=== PATIENT | male | born 1955 | race Caucasian/White ===

== ENCOUNTER 2020-06-13 04:02 | Observation (INO) ==
--- NOTE | 2020-06-13 04:44 | ERNOTE ---
Dyspnea - General Presenting Symptoms: shortness of breath Time Seen by Provider: 06/13/20 04:26 Source: patient Exam Limitations: no limitations - Immun/Allergies/Home Medications Immunizations: IMMUNIZATION HX Immunizations Up to Date Yes History of Influenza Vaccine Yes Allergies/Adverse Reactions: Allergies Penicillins Adverse Reaction (Verified 06/13/20 04:26) RASH/HIVES/DIARRHEA/DIZZINESS Home Medications: HOME MEDICATIONS atorvastatin 80 mg tablet 80 mg PO HS 05/10/19 [Last Taken Unknown] buspirone 10 mg tablet 10 mg PO DAILY 05/10/19 [Last Taken Unknown] lisinopril 20 mg tablet 20 mg PO DAILY 05/10/19 [Last Taken Unknown] zolpidem 10 mg tablet 10 mg PO HS PRN 05/10/19 [Last Taken Unknown] sertraline 100 mg tablet 50 mg PO DAILY tab 05/11/19 [Last Taken Unknown] - History of Present Illness Narrative: Patient has been sick with cough diarrhea and lack of appetite for about a week. He tested positive for Covid 2 days ago. He worsened overnight and states he was stumbling, very weak and short of breath this morning. Severity: moderate Treatment EQUITY HOLDER: none Modifying Factors - (Improves): Reports: oxygen Modifying Factors (Worsens): Reports: activity Associated Symptoms-Dyspnea: Reports: cough, weakness Review of Systems - Review of Systems Constitutional: Present: recent illness, fatigue, malaise ENT: Absent: nose congestion, nasal drainage Respiratory: Present: See HPI, shortness of breath, cough Cardiology: Absent: chest pain Gastrointestinal/Abdominal: Present: nausea, vomiting, diarrhea, abdominal pain Genitourinary: Absent: frequency, dysuria Musculoskeletal: Absent: back pain, muscle pain Skin: Absent: rash Neurological: Absent: headache Endocrine: Absent: excessive sweating Medical History (Last Reviewed 06/13/20 @ 04:42 by Kenji Thomas DO) Anxiety Onset Date: Unknown Hyperplasia of prostate Onset Date: Unknown Hypertension Onset Date: Unknown Insomnia Onset Date: Unknown Obesity Onset Date: Unknown Osteoarthritis Onset Date: Unknown Arthritis Onset Date: Unknown Depression Onset Date: Unknown Hyperlipidemia Onset Date: Unknown Surgical History: Surgical History (Last Reviewed 06/13/20 @ 04:42 by Kenji Thomas DO) History of Achilles tendon repair Onset Date: ~1976 right History of cataract surgery Onset Date: Unknown right, History of colonoscopy Onset Date: 06/07/19 06/07/19 [place]-severe sigmoid diverticulosis. Recheck 10yrs. History of detached retina repair Onset Date: 07/21/18 right History of foot surgery Onset Date: ~2013 left flat foot reconstruction History of hernia repair Onset Date: ~1999 umbilical History of nasal septoplasty Onset Date: Unknown History of tonsillectomy and adenoidectomy Onset Date: ~12/2010 Family History: Family History (Last Reviewed 06/13/20 @ 04:42 by Kenji Thomas DO) Father , age 77-lung ca Cancer lung ca-dx age 75 Mother , age 77-lung ca Cancer colon ca-dx age 70. Lung ca-dx age 72 Sister Alive and well Brother Alive and well Grandmother Cancer paternal-uterine ca Social History: (Last Reviewed 06/13/20 @ 04:42 by Kenji Thomas DO) Social History: Marital status: household members: spouse number of children: 5 current occupational status: retired Service: No Tobacco: Smoking Status: Former smoker tobacco type: smokeless tobacco Smokeless tobacco user: chewing tobacco Alcohol: alcohol intake: current alcohol intake frequency: a few times a month Substance Use: substance use type: does not use Dietary Habits: caffeine: Yes Personal Safety: victim of physical abuse: No victim of emotional abuse: No Physical Exam - Physical Exam General Appearance: Present: wd/wn, alert, no apparent distress Head Exam: Present: normal inspection, no evidence of injury Neck: Present: normal inspection, nontender, supple Respiratory: Present: no respiratory distress, no accessory muscle use, crackles - Right midlung Cardiovascular/Chest: Present: no murmur, tachycardia Gastrointestinal/Abdominal: Present: normal bowel sounds, nontender, nondistended, soft Back Exam: Present: normal inspection Extremity Exam: Present: normal inspection, no edema Neurological Exam: Present: alert, oriented, normal mood/affect Skin Exam: Present: normal color, warm/dry Lymphatic Exam: Present: no adenopathy Progress - Results and Orders Patient's Lab Results:: I have reviewed the patient's lab results. Results and Orders: Laboratory Tests 06/13/20 06/13/20 06/13/20 04:15 04:15 04:15 WBC 10.8 H Hgb 16.4 Hct 48.2 Plt Count 232 Neutrophils % (Manual) 76 H D-Dimer 1.09 H Sodium 130 L Potassium 2.8 L Chloride 95 L Anion Gap 15.8 H BUN 8 Creatinine 0.99 Random Glucose 133 H Lactic Acid, Venous Calcium 9.4 Total Bilirubin 0.9 AST 48 ALT 66 Alkaline Phosphatase 90 Troponin I Less than 0.017 B-Natriuretic Peptide 28 06/13/20 04:15 WBC Hgb Hct Plt Count Neutrophils % (Manual) D-Dimer Sodium Potassium Chloride Anion Gap BUN Creatinine Random Glucose Lactic Acid, Venous 1.5 Calcium Total Bilirubin AST ALT Alkaline Phosphatase Troponin I B-Natriuretic Peptide - Vital Signs Patient's Vital Signs:: I have reviewed the patient's vital signs. Vital Signs: Vital Signs 06/13/20 04:19 Temperature 36.5 C Pulse Rate 107 H Respiratory Rate 20 Blood Pressure 128/80 O2 Sat by Pulse Oximetry 91 L - EKG EKG #1 EKG: supraventricular tachycardia - 110, nonspecific ST T wave changes EKG read: Interp. by me - X-Ray X-Ray #1 X-Ray: chest Interpretation: Interp. by me X-ray Comments: Patchy peripheral infiltrates right lung greater than left - Progress/Reassessment Chief Complaint: Dyspnea Progress Note-Subjective: 06/13/20 05:[address] Philip, she agrees with admission, anticoagulation and oxygen supplementation Departure Clinical Impression: Pneumonia due to COVID-19 virus - Departure Disposition: Still a patient Condition: Good Referrals: Alice Lorenzana, [Primary Care Provider] -
[2020-06-13 04:47] LABS: Hematocrit 48.2 % (42.0-52.0); Hemoglobin 16.4 gm/dL (13.5-18.0); Mean Cell Volume 85.8 fl (78-100); Mean Corpuscular Hemoglobin 29.2 pg (27-31); Mean Platelet Volume 10.5 fl (8-11.3); Platelet Count 232 K/mm3 (150-450); Red Blood Count 5.62 M/mm3 (4.7-6.0); Red Cell Distribution Width 13.9 % (11.5-14.0); White Blood Count 10.8 K/mm3 (4.0-10.5)
[2020-06-13 04:49] LABS: Total Cells Counted 100
[2020-06-13 04:52] LABS: Atypical (Reactive) Lymph 4 % (0-2); Lymphocyte 12 % (20-51); Monocyte 8 % (0-9); Neutrophil 76 % (42-75); Neutrophil # 8.2 K/mm3 (1.3-6.0); Platelet Estimate Normal (NORMAL); RBC Morphology Normal (NORMAL)
[2020-06-13 04:59] LABS: ALT 66 U/L (19-67); AST 48 U/L (0-48); Albumin * 3.7 gm/dl (3.4-5.0); Alkaline Phosphatase * 90 U/L (50-170); Anion Gap 15.8 mmol/L (6.8-13.8); BNP * 28 pg/mL (5-350); BUN/Creatinine Ratio 8.1 (9.0-21.6); Bilirubin, Total 0.9 mg/dL (0.0-1.1); Blood Urea Nitrogen 8 mg/dL (6-23); Ca. Corrected For Albumin 9.3 mg/dL (8.4-10.2); Calcium * 9.4 mg/dL (7.9-10.9); Chloride 95 mmol/L (97-106); Glucose * 133 mg/dL (70-110); Potassium 2.8 mmol/L (3.4-4.6); Sodium 130 mmol/L (132-142); Troponin I Less than 0.017 ng/mL (0.00-0.10)
[2020-06-13] MEDS ORDERED: ENOXAPARIN SODIUM 100 MG/ML SYRG SC SCH (06:00)
[2020-06-13] MEDS ORDERED: ENOXAPARIN SODIUM 60 MG/0.6 ML SYRG SC SCH (08:15)
[2020-06-13] MEDS ORDERED: ZOLPIDEM TARTRATE 10 MG TABLET PO PRN (09:45)
[2020-06-13] MEDS ORDERED: ENOXAPARIN SODIUM 40 MG/0.4 ML SYRG SC SCH (09:45)
[2020-06-13] MEDS ORDERED: POTASSIUM BICARBONATE/CIT AC 25 MEQ TABLET.EFF PO ONE (09:45)
[2020-06-13] MEDS ORDERED: LISINOPRIL 20 MG TABLET PO SCH (10:00)
--- NOTE | 2020-06-13 12:26 | HPDIS ---
Chief Complaint - Chief Complaint Date of Service: 06/13/20 Time of Service: 10:38 Chief Complaint: Weakness, poor appetite, shortness of breath History of Present Illness: 65-year-old male with a past medical history of hypertension, hyperlipidemia, anxiety, depression, osteoarthritis, obesity presents from home with complaints of shortness of breath. He was diagnosed with COVID-19 two days prior to presentation. For the past 1 week he has been ill with cough, poor appetite, weakness and diarrhea. In the emergency department he was found to have hypoxia with oxygen saturation in the low 90s to high 80s that responded to oxygen via Nasal cannula. Chest x-ray showed patchy peripheral right pneumonia cannot exclude COVID-19, labs showed a mild leukocytosis at 10.8, hypokalemia 2.8 and hyponatremia at 130. He was admitted for further evaluation. Medical History (Last Reviewed 06/13/20 @ 06:46 by Isreal Boone RN) Anxiety Onset Date: Unknown Hyperplasia of prostate Onset Date: Unknown Hypertension Onset Date: Unknown Insomnia Onset Date: Unknown Obesity Onset Date: Unknown Osteoarthritis Onset Date: Unknown Arthritis Onset Date: Unknown Depression Onset Date: Unknown Hyperlipidemia Onset Date: Unknown Surgical History: Surgical History (Last Reviewed 06/13/20 @ 06:46 by Isreal Boone RN) History of Achilles tendon repair Onset Date: ~1976 right History of cataract surgery Onset Date: Unknown right, History of colonoscopy Onset Date: 06/07/19 06/07/19 [place]-severe sigmoid diverticulosis. Recheck 10yrs. History of detached retina repair Onset Date: 07/21/18 right History of foot surgery Onset Date: ~2013 left flat foot reconstruction History of hernia repair Onset Date: ~1999 umbilical History of nasal septoplasty Onset Date: Unknown History of tonsillectomy and adenoidectomy Onset Date: ~12/2010 Family History: Family History (Last Reviewed 06/13/20 @ 06:46 by Isreal Boone RN) Father , age 77-lung ca Cancer lung ca-dx age 75 Mother , age 77-lung ca Cancer colon ca-dx age 70. Lung ca-dx age 72 Sister Alive and well Brother Alive and well Grandmother Cancer paternal-uterine ca Social History: (Last Reviewed 06/13/20 @ 06:46 by Isreal Boone RN) Social History: Marital status: household members: spouse number of children: 5 current occupational status: retired Service: No Tobacco: Smoking Status: Former smoker tobacco type: smokeless tobacco Smokeless tobacco user: chewing tobacco Alcohol: alcohol intake: current alcohol intake frequency: a few times a month Substance Use: substance use type: does not use Dietary Habits: caffeine: Yes Personal Safety: victim of physical abuse: No victim of emotional abuse: No Review Of Systems (GEN) - Review of Systems Generalized/Overall Review: Absent: Fever Respiratory: Absent: Shortness of Breath Cardiac: Absent: Chest Pain Abdominal: Absent: Abdominal Pain Misc: All systems neg except as marked Immunizations: IMMUNIZATION HX Immunizations Up to Date Yes History of Influenza Vaccine Yes Allergies/Adverse Reactions: Allergies Allergy/AdvReac Type Severity Reaction Status Date / Time Penicillins AdvReac RASH/HIVES/ Verified 06/13/20 06:46 DIARRHEA/DI ZZINESS Home Medications: HOME MEDICATIONS atorvastatin 80 mg tablet 80 mg PO HS 05/10/19 [Last Taken Unknown] buspirone 10 mg tablet 10 mg PO TID 05/10/19 [Last Taken Unknown] lisinopril 20 mg tablet 20 mg PO DAILY 05/10/19 [Last Taken Unknown] zolpidem 10 mg tablet 10 mg PO HS PRN 05/10/19 [Last Taken Unknown] sertraline 100 mg tablet 100 mg PO DAILY tab 05/11/19 [Last Taken Unknown] Exam - Exam Vital Signs: Vital Signs - Last Taken Temp 36.3 C 06/13/20 06:48 Pulse 100 06/13/20 11:38 Resp 21 H 06/13/20 09:59 BP 125/71 06/13/20 11:38 Pulse Ox 96 06/13/20 09:59 Constitutional: Present: Alert, Cooperative, Well developed, Well nourished, No distress, Elderly ENT Exam: Present: hearing grossly normal, moist mucous membranes Eye Exam: bilateral eye: EOMI Neck: Present: non-tender, supple. Absent: lymphadenopathy (R), lymphadenopathy (L) Back Exam: Present: normal inspection, no CVA tenderness Respiratory: Present: lungs clear, no respiratory distress, no accessory muscle use, No wheezing. Absent: crackles, rhonchi Cardiovascular/Chest: Present: normal peripheral pulses, regular rate, rhythm, no murmur Peripheral Pulses: dorsalis-pedis (R): 1+, dorsalis-pedis (L): 1+ Abdomen: Present: Normal bowel sounds, soft, nontender Extremity: Present: normal range of motion, non-tender, pedal edema - Lower extremity 1+ pitting Skin Exam: Present: normal color, warm/dry Neurologic: Present: alert, normal mood/affect Appearance: Present: appropriate appearance, appropriate insight Eye contact: Present: cooperative Diagnostic Studies: Abnormal Lab Results 06/13/20 06/13/20 06/13/20 Range/Units 04:15 04:15 04:15 WBC 10.8 H (4.0-10.5) K/mm3 Neutrophils % (Manual) 76 H (42-75) % Lymphocytes % (Manual) 12 L (20-51) % Neutrophils # (Manual) 8.2 H (1.3-6.0) K/mm3 Lymphocytes # (Manual) 1.3 L (1.5-3.5) k/mm3 Atypic/Reactive Lymphs 4 H (0-2) % D-Dimer 1.09 H (0.19-0.49) ug/mL Sodium 130 L (132-142) mmol/L Potassium 2.8 L (3.4-4.6) mmol/L Chloride 95 L (97-106) mmol/L Carbon Dioxide 22.0 L (24-32.6) mmol/L Anion Gap 15.8 H (6.8-13.8) mmol/L BUN/Creatinine Ratio 8.1 L (9.0-21.6) Random Glucose 133 H (70-110) mg/dL Laboratory Results WBC 10.8 K/mm3 (4.0-10.5) H 06/13/20 04:15 RBC 5.62 M/mm3 (4.7-6.0) 06/13/20 04:15 Hgb 16.4 gm/dL (13.5-18.0) 06/13/20 04:15 Hct 48.2 % (42.0-52.0) 06/13/20 04:15 MCV 85.8 fl (78-100) 06/13/20 04:15 MCH 29.2 pg (27-31) 06/13/20 04:15 MCHC 34.0 g/dl (32-36) 06/13/20 04:15 RDW 13.9 % (11.5-14.0) 06/13/20 04:15 Plt Count 232 K/mm3 (150-450) 06/13/20 04:15 MPV 10.5 fl (8-11.3) 06/13/20 04:15 Neutrophils % (Manual) 76 % (42-75) H 06/13/20 04:15 Lymphocytes % (Manual) 12 % (20-51) L 06/13/20 04:15 Monocytes % (Manual) 8 % (0-9) 06/13/20 04:15 Neutrophils # (Manual) 8.2 K/mm3 (1.3-6.0) H 06/13/20 04:15 Lymphocytes # (Manual) 1.3 k/mm3 (1.5-3.5) L 06/13/20 04:15 Monocytes # (Manual) 0.9 k/mm3 (0.0-1.0) 06/13/20 04:15 Atypic/Reactive Lymphs 4 % (0-2) H 06/13/20 04:15 Platelet Estimate Normal (NORMAL) 06/13/20 04:15 RBC Morphology Normal (NORMAL) 06/13/20 04:15 D-Dimer 1.09 ug/mL (0.19-0.49) H 06/13/20 04:15 Sodium 130 mmol/L (132-142) L 06/13/20 04:15 Plasma Sodium 131 mmol/L (130-142) 06/13/20 04:15 Potassium 2.8 mmol/L (3.4-4.6) L 06/13/20 04:15 Chloride 95 mmol/L (97-106) L 06/13/20 04:15 Carbon Dioxide 22.0 mmol/L (24-32.6) L 06/13/20 04:15 Anion Gap 15.8 mmol/L (6.8-13.8) H 06/13/20 04:15 BUN 8 mg/dL (6-23) 06/13/20 04:15 Creatinine 0.99 mg/dL (0.4-1.4) 06/13/20 04:15 Est GFR (Non-Af Amer) 81 mL/min (60-130) 06/13/20 04:15 BUN/Creatinine Ratio 8.1 (9.0-21.6) L 06/13/20 04:15 Random Glucose 133 mg/dL (70-110) H 06/13/20 04:15 Lactic Acid, Venous 1.5 mmol/L (0.4-2.0) 06/13/20 04:15 Calcium 9.4 mg/dL (7.9-10.9) 06/13/20 04:15 Calcium Adj for Albumin 9.3 mg/dL (8.4-10.2) 06/13/20 04:15 Total Bilirubin 0.9 mg/dL (0.0-1.1) 06/13/20 04:15 AST 48 U/L (0-48) 06/13/20 04:15 ALT 66 U/L (19-67) 06/13/20 04:15 Alkaline Phosphatase 90 U/L (50-170) 06/13/20 04:15 Troponin I Less than 0.017 ng/mL (0.00-0.10) 06/13/20 04:15 B-Natriuretic Peptide 28 pg/mL (5-350) 06/13/20 04:15 Total Protein 8.0 gm/dL (6.2-8.2) 06/13/20 04:15 Albumin 3.7 gm/dl (3.4-5.0) 06/13/20 04:15 Assessment/Plan - Narrative Narrative: 65-year-old male with a past medical history of hypertension, hyperlipidemia, anxiety, depression, osteoarthritis, obesity presents from home with complaints of shortness of breath. He was diagnosed with COVID-19 two days prior to presentation. For the past 1 week he has been ill with cough, poor appetite, weakness and diarrhea. In the emergency department he was found to have hypoxia with oxygen saturation in the low 90s to high 80s that responded to oxygen via Nasal cannula. Chest x-ray showed patchy peripheral right pneumonia cannot exclude COVID-19, labs showed a mild leukocytosis at 10.8, hypokalemia 2.8 and hyponatremia at 130. He was admitted for further evaluation. This morning he is doing well he is no longer requiring oxygen supplementation and is maintaining oxygen saturation even with ambulation. He is eating and drinking. He feels well. I will replete his potassium and repeat a potassium later today. If potassium normalizes and vitals remained stable he will be ready to be discharged home. Plan #1 Taper off of oxygen to baseline O2 #2 resume home medications for comorbidities #3 replete potassium, repeat potassium level at 6 PM tonight #4 discharge planning Hospital Course: 65-year-old male with a past medical history of hypertension, hyperlipidemia, anxiety, depression, osteoarthritis, obesity presents from home with complaints of shortness of breath. He was diagnosed with COVID-19 two days prior to presentation. For the past 1 week he has been ill with cough, poor appetite, weakness and diarrhea. In the emergency department he was found to have hypoxia with oxygen saturation in the low 90s to high 80s that responded to oxygen via Nasal cannula. Chest x-ray showed patchy peripheral right pneumonia cannot exclude COVID-19, labs showed a mild leukocytosis at 10.8, hypokalemia 2.8 and hyponatremia at 130. He was admitted for further evaluation. This morning he is doing well he is no longer requiring oxygen supplementation and is maintaining oxygen saturation even with ambulation. He is eating and drinking. He feels well. I will replete his potassium and repeat a potassium later today. Potassium has improved with repletion and he is stable to be discharged home today. Procedures Performed: none Results and Findings: Lab Pending Results 06/13/20 04:15: WBC 10.8 H, RBC 5.62, Hgb 16.4, Hct 48.2, MCV 85.8, MCH 29.2, MCHC 34.0, RDW 13.9, Plt Count 232, MPV 10.5, Neutrophils % (Manual) 76 H, Lymphocytes % (Manual) 12 L, Monocytes % (Manual) 8, Neutrophils # (Manual) 8.2 H, Lymphocytes # (Manual) 1.3 L, Monocytes # (Manual) 0.9, Atypic/Reactive Lymphs 4 H, Platelet Estimate Normal, RBC Morphology Normal 06/13/20 04:15: Sodium 130 L, Plasma Sodium 131, Potassium 2.8 L, Chloride 95 L, Carbon Dioxide 22.0 L, Anion Gap 15.8 H, BUN 8, Creatinine 0.99, Est GFR (Non-Af Amer) 81, BUN/Creatinine Ratio 8.1 L, Random Glucose 133 H, Calcium 9.4, Calcium Adj for Albumin 9.3, Total Bilirubin 0.9, AST 48, ALT 66, Alkaline Phosphatase 90, Troponin I Less than 0.017, B-Natriuretic Peptide 28, Total Protein 8.0, Albumin 3.7 06/13/20 04:15: D-Dimer 1.09 H 06/13/20 04:15: Lactic Acid, Venous 1.5 Discharge Location: Home Disposition: Home self-care Condition: Good Discharge Activity: Activity as tolerated Discharge Diet: General/regular food Referrals: Alice Lorenzana DO [Primary Care Provider] - Complete Home Medications List: Complete Home Medication List: atorvastatin 80 mg tablet 80 mg PO HS 05/10/19 buspirone 10 mg tablet 10 mg PO TID 05/10/19 lisinopril 20 mg tablet 20 mg PO DAILY 05/10/19 zolpidem 10 mg tablet 10 mg PO HS PRN 05/10/19 sertraline 100 mg tablet 100 mg PO DAILY tab 05/11/19
[2020-06-13] MEDS: busPIRone HCL 5 MG TABLET PO SCH ×2 (13:52→17:42)
[2020-06-13 19:34] VITALS: BP 136/66
[2020-06-13] MEDS ORDERED: ROSUVASTATIN CALCIUM 20 MG TABLET PO SCH (21:00)
[2020-06-14] MEDS ORDERED: SERTRALINE HCL 100 MG TABLET PO SCH (09:00)
== END 2020-06-13 19:55 | disposition home or self-care (01) ==
LOC: ER 04:02 → INTOOBSV 06:04 → MS 06:04
PROVIDERS: ADMIT Internal Medicine; ATTEND Internal Medicine